=== PATIENT | female | born 1990 | race Caucasian/White ===

== ENCOUNTER 2021-10-29 17:57 | Emergency (ER) | payer SELFPAY | END 2021-10-29 19:59 | disposition home or self-care (01) | LOC: ERS 17:57 | DX: B34.9 Viral infection, unspecified (principal); F17.210 Nicotine dependence, cigarettes, uncomplicated | CPT/HCPCS: 99283 ==

== ENCOUNTER 2021-11-28 18:45 | Emergency (ER) | payer SELFPAY ==
[2021-11-28] MEDS ORDERED: Ketorolac Tromethamine 30 MG/ML VIAL ONE (20:47)
[2021-11-28] MEDS ORDERED: HYDROcodone/Acetaminophen 5/325 mg Tablet ONE (20:47)
== END 2021-11-28 21:30 | disposition home or self-care (01) ==
LOC: ERS 18:45
DX: K08.89 Other specified disorders of teeth and supporting structures (principal); F17.210 Nicotine dependence, cigarettes, uncomplicated
CPT/HCPCS: 96372; 99282; J1885

== ENCOUNTER 2022-04-04 23:13 | Emergency (ER) | payer SELFPAY ==
[2022-04-05] MEDS ORDERED: HYDROcodone/Acetaminophen 5/325 mg Tablet ONE (03:00)
== END 2022-04-05 03:13 | disposition home or self-care (01) ==
LOC: ERS 23:13
DX: S83.92XA Sprain of unspecified site of left knee, initial encounter (principal); X50.1XXA Overexertion from prolonged static or awkward postures, initial encounter; F17.210 Nicotine dependence, cigarettes, uncomplicated

== ENCOUNTER 2022-04-17 17:05 | Emergency (ER) | payer SELFPAY | END 2022-04-17 19:38 | disposition home or self-care (01) | LOC: ERS 17:05 | DX: R50.9 Fever, unspecified (principal); Z20.822 Contact with and (suspected) exposure to COVID-19; F17.210 Nicotine dependence, cigarettes, uncomplicated | CPT/HCPCS: 87804; 99283; U0003; U0005 ==